=== PATIENT | male | born 1965 | race Two or more races ===

== ENCOUNTER 2021-06-14 18:15 | Inpatient (IN) | payer OTHER, MEDICAID ==
[~2021-06-14] VITALS: Ht 170.2 cm; Wt 71.9 kg
[2021-06-14] MEDS ORDERED: SODIUM CHLORIDE 0.9% 1,000 ML IV ONE (18:45)
[2021-06-14] MEDS ORDERED: INSULIN REGULAR (DRIP) 100 UNITS in SODIUM CHLORIDE 0.9% 100 ML IV ONE (18:45)
[2021-06-14 19:09] LABS: BG BASE EXCESS -11.1 mmol/L (-2.0-2.0); BG CARBOXYHEMOGLOBIN 1.2 % (0.5-1.5); BG DEOXYHEMOGLOBIN 4.4 % (0.0-5.0); BG FRACTION INSPIRED OXYGEN 24; BG METHEMOGLOBIN 0.4 % (0.0-1.5); BG OXYGEN SATURATION 95.5 % (92.0-98.5); BG PCO2 25.4 mmHg (35.0-45.0); BG PH 7.328 (7.350-7.450); BG PO2 82.9 mmHg (75.0-100.0); BG SAMPLE SITE RIGHT RADIAL; BG TOTAL HEMOGLOBIN 13.9 g/dL (12.0-18.0); BG VENT MODE NASAL CANNULA
[2021-06-14 19:18] LABS: HEMATOCRIT. 50.4 % (42.0-52.0); HEMOGLOBIN. 14.2 g/dL (14.0-18.0); MEAN CORPUSCULAR HEMOGLOBIN 30.5 pg (28.0-32.0); MEAN CORPUSCULAR VOLUME 108.2 fL (80.0-94.0); MEAN PLATELET VOLUME 9.7 fl (7.4-10.4); PLATELET 80 x1000/uL (130-400); RED BLOOD CELL COUNT 4.66 mill/uL (4.7-6.1); RED CELL DISTRIBUTION WIDTH 16.2 % (11.6-14.6)
[2021-06-14 19:48] LABS: PLATELET ESTIMATE DECREASED
[2021-06-14] MEDS ORDERED: ENOXAPARIN 80MG/0.8ML SYR SUBCUT NR (20:00)
[2021-06-14] MEDS ORDERED: ASPIRIN 325MG EC TABLET PO NR (20:00)
[2021-06-14] MEDS ORDERED: METOPROLOL TARTRATE 25MG TABLET PO NR (20:00)
[2021-06-14 20:21] LABS: BETA HYDROXYBUTYRATE 11.7 mMol/L (0.0-0.3)
[2021-06-14 23:18] LABS: PHOSPHORUS 4.4 mg/dL (2.5-4.9)
[2021-06-15] MEDS ORDERED: SODIUM CHLORIDE 0.9% 1,000 ML IV ONE
[2021-06-15] MEDS ORDERED: ONDANSETRON HCL 4MG/2ML INJ IV PRN (03:45)
[2021-06-15] MEDS ORDERED: DEXTROSE 50% WATER 50ML SYRINGE IV PRN ×3 (03:45→13:15)
[2021-06-15] MEDS ORDERED: ACETAMINOPHEN 325MG TABLET PO PRN (03:45)
[2021-06-15] MEDS ORDERED: DOCUSATE SODIUM 100MG CAPSULE PO PRN (03:45)
[2021-06-15] MEDS ORDERED: SODIUM CHLORIDE 0.9% 1,000 ML IV SCH (04:00)
[2021-06-15] MEDS: BLOOD SUGAR DIAGNOSTIC STRIP TEST SCH ×13 (04:18→21:39)
[2021-06-15] MEDS ORDERED: KCL 10MEQ/50ML PREMIX 50 ML IV NR (04:30)
[2021-06-15] MEDS ORDERED: INSULIN REGULAR (DRIP) 100 UNITS in SODIUM CHLORIDE 0.9% 100 ML IV SCH (07:00)
[2021-06-15] MEDS: ASPIRIN 81MG EC TABLET PO SCH (08:37)
[2021-06-15 12:12] LABS: CHLORIDE 114 mEq/L (98-107)
[2021-06-15 12:20] LABS: LDL CHOLESTEROL 64 mg/dL (5-100)
[2021-06-15 12:21] LABS: HDL CHOLESTEROL 25 mg/dL (40-59)
[2021-06-15] MEDS ORDERED: DEXTROSE 5% WATER 1,000 ML IV ONE (13:15)
[2021-06-15] MEDS ORDERED: INSULIN GLARGINE UD 100 UNITS/ML SYR SUBCUT SCH (13:15)
[2021-06-15] MEDS: INSULIN LISPRO 100 UNITS/ML SUBCUT SCH ×3 (13:17→21:52)
[2021-06-15] MEDS ORDERED: POTASSIUM CHLORIDE INJ 40 MEQ in DEXT 5% WATER 250 ML IV ONE (13:30)
[2021-06-15 14:28] VITALS: BP 133/84
[2021-06-15 15:59] LABS: CREATINE KINASE MB FRACTION 10.1 ng/mL (0.5-3.6)
[2021-06-15 16:00] VITALS: BP 133/84
[2021-06-15 20:00] VITALS: BP 138/72
[2021-06-15] MEDS: METOPROLOL TARTRATE 25MG TABLET PO SCH (22:05)
[2021-06-16] VITALS: BP 138/80
[2021-06-16 03:08] LABS: CREATINE KINASE MB FRACTION 6.8 ng/mL (0.5-3.6)
[2021-06-16] MEDS: BLOOD SUGAR DIAGNOSTIC STRIP TEST SCH ×4 (06:26→21:00)
[2021-06-16] MEDS: INSULIN LISPRO 100 UNITS/ML SUBCUT SCH ×4 (06:28→22:51)
[2021-06-16 09:41] LABS: CHLORIDE 112 mEq/L (98-107)
[2021-06-16 09:50] LABS: HEMATOCRIT. 39.9 % (42.0-52.0); HEMOGLOBIN. 13.4 g/dL (14.0-18.0); MEAN CORPUSCULAR HEMOGLOBIN 30.4 pg (28.0-32.0); MEAN CORPUSCULAR VOLUME 90.3 fL (80.0-94.0); RED BLOOD CELL COUNT 4.42 mill/uL (4.7-6.1); RED CELL DISTRIBUTION WIDTH 15.8 % (11.6-14.6)
[2021-06-16] MEDS ORDERED: INSULIN GLARGINE UD 100 UNITS/ML SYR SUBCUT SCH (10:00)
[2021-06-16] MEDS: ASPIRIN 81MG EC TABLET PO SCH (10:10)
[2021-06-16] MEDS: METOPROLOL TARTRATE 25MG TABLET PO SCH ×2 (10:10→22:41)
[2021-06-16 10:37] LABS: PLATELET 50 x1000/uL (130-400)
[2021-06-16] MEDS: DEXTROSE 5% WATER 1,000 ML IV SCH (12:15)
[2021-06-16] MEDS ORDERED: LORAZEPAM 0.5MG TABLET PO PRN (15:00)
[2021-06-16] MEDS ORDERED: LORAZEPAM 2MG/ML CPJ IV PRN (15:00)
[2021-06-16 16:59] LABS: PLATELET ESTIMATE MARKEDLY DECREASED
[2021-06-16] MEDS: LORAZEPAM 2MG/ML CPJ IV PRN (17:28)
[2021-06-16 21:18] VITALS: BP 124/74
[2021-06-17] VITALS (7 sets, daily range): BP systolic 97–132; BP diastolic 52–90
[2021-06-17] MEDS: DEXTROSE 5% WATER 1,000 ML IV SCH ×2 (01:26→15:08)
[2021-06-17] MEDS: LORAZEPAM 2MG/ML CPJ IV PRN ×2 (04:05→12:12)
[2021-06-17] MEDS: INSULIN LISPRO 100 UNITS/ML SUBCUT SCH ×4 (06:19→21:47)
[2021-06-17] MEDS: BLOOD SUGAR DIAGNOSTIC STRIP TEST SCH ×4 (06:19→21:36)
[2021-06-17] MEDS: METOPROLOL TARTRATE 25MG TABLET PO SCH ×2 (08:48→23:24)
[2021-06-17] MEDS ORDERED: INSULIN GLARGINE UD 100 UNITS/ML SYR SUBCUT SCH ×2 (10:00)
[2021-06-17] MEDS: CHLORDIAZEPOXIDE 5 MG CAPSULE PO SCH ×2 (15:07→22:44)
[2021-06-17 17:28] LABS: CHLORIDE 103 mEq/L (98-107)
[2021-06-17 17:33] LABS: BASOPHILS % 0.1 % (0.0-2.0); EOSINOPHILS % 1.1 % (0.0-5.0); HEMOGLOBIN. 12.8 g/dL (14.0-18.0); LYMPHOCYTES % 10.3 % (20.0-50.0); NEUTROPHILS % 79.5 % (40.0-76.0); RED BLOOD CELL COUNT 4.12 mill/uL (4.7-6.1); RED CELL DISTRIBUTION WIDTH 15.9 % (11.6-14.6)
[2021-06-17 17:37] LABS: CREATINE KINASE 177 IU/L (39-308)
[2021-06-17 17:41] LABS: PLATELET 49 x1000/uL (130-400)
[2021-06-18 04:00] VITALS: BP 106/65
[2021-06-18] MEDS: BLOOD SUGAR DIAGNOSTIC STRIP TEST SCH ×4 (06:34→21:37)
[2021-06-18] MEDS: CHLORDIAZEPOXIDE 5 MG CAPSULE PO SCH ×3 (06:34→21:08)
[2021-06-18] MEDS: DEXTROSE 5% WATER 1,000 ML IV SCH (06:34)
[2021-06-18] MEDS: INSULIN LISPRO 100 UNITS/ML SUBCUT SCH ×6 (06:57→21:37)
[2021-06-18] MEDS ORDERED: INSULIN LISPRO 100 UNITS/ML SUBCUT SCH (07:00)
[2021-06-18 08:00] VITALS: BP 103/62
[2021-06-18 08:04] LABS: CHLORIDE 100 mEq/L (98-107)
[2021-06-18 08:16] LABS: HEMATOCRIT. 36.9 % (42.0-52.0); HEMOGLOBIN. 12.6 g/dL (14.0-18.0); MEAN CORPUSCULAR HEMOGLOBIN 31.4 pg (28.0-32.0); MEAN CORPUSCULAR VOLUME 91.9 fL (80.0-94.0); MEAN PLATELET VOLUME 10.8 fl (7.4-10.4); PLATELET 57 x1000/uL (130-400); RED BLOOD CELL COUNT 4.01 mill/uL (4.7-6.1); RED CELL DISTRIBUTION WIDTH 15.5 % (11.6-14.6)
[2021-06-18] MEDS: METOPROLOL TARTRATE 25MG TABLET PO SCH ×2 (09:00→20:23)
[2021-06-18] MEDS ORDERED: POTASSIUM CHLORIDE 20MEQ TABLET SR PO NR (09:30)
[2021-06-18] MEDS ORDERED: INSULIN GLARGINE UD 100 UNITS/ML SYR SUBCUT SCH (10:00)
[2021-06-18 12:00] VITALS: BP 102/61
[2021-06-18] MEDS ORDERED: POTASSIUM CHLORIDE INJ 40 MEQ in DEXT 5% WATER 250 ML IV NR (12:00)
[2021-06-18 16:00] VITALS: BP 112/68
[2021-06-18] MEDS: LORAZEPAM 2MG/ML CPJ IV PRN ×2 (16:56→23:00)
[2021-06-18 20:00] VITALS: BP 102/65
[2021-06-18] MEDS: INSULIN GLARGINE UD 100 UNITS/ML SYR SUBCUT SCH (21:37)
[2021-06-18 22:09] LABS: PLATELET ESTIMATE DECREASED
[2021-06-19] VITALS: BP 121/80
[2021-06-19 04:00] VITALS: BP 133/79
[2021-06-19] MEDS: CHLORDIAZEPOXIDE 5 MG CAPSULE PO SCH (05:32)
[2021-06-19] MEDS: INSULIN LISPRO 100 UNITS/ML SUBCUT SCH ×7 (05:33→22:52)
[2021-06-19] MEDS: BLOOD SUGAR DIAGNOSTIC STRIP TEST SCH ×4 (05:34→21:00)
[2021-06-19 08:00] VITALS: BP 102/57
[2021-06-19] MEDS: METOPROLOL TARTRATE 25MG TABLET PO SCH ×2 (09:00→21:00)
[2021-06-19 09:41] LABS: HEMATOCRIT. 37.1 % (42.0-52.0); HEMOGLOBIN. 12.5 g/dL (14.0-18.0); MEAN CORPUSCULAR HEMOGLOBIN 30.7 pg (28.0-32.0); MEAN CORPUSCULAR VOLUME 91.3 fL (80.0-94.0); MEAN PLATELET VOLUME 11.1 fl (7.4-10.4); PLATELET 89 x1000/uL (130-400); RED BLOOD CELL COUNT 4.06 mill/uL (4.7-6.1); RED CELL DISTRIBUTION WIDTH 15.5 % (11.6-14.6)
[2021-06-19 09:49] LABS: CHLORIDE 105 mEq/L (98-107)
[2021-06-19] MEDS: INSULIN GLARGINE UD 100 UNITS/ML SYR SUBCUT SCH ×2 (09:57→22:53)
[2021-06-19 12:00] VITALS: BP 112/75
[2021-06-19] MEDS: POTASSIUM CHLORIDE 20MEQ TABLET SR PO SCH ×2 (12:47→17:43)
[2021-06-19 14:36] LABS: PLATELET ESTIMATE DECREASED
[2021-06-19 16:00] VITALS: BP 101/70
[2021-06-19 20:00] VITALS: BP 97/76
[2021-06-19] MEDS ORDERED: PANTOPRAZOLE 40MG DR TABLET PO NR (22:00)
[2021-06-19] MEDS: LORAZEPAM 2MG/ML CPJ IV PRN (22:09)
[2021-06-20] VITALS: BP 105/71
[2021-06-20 04:00] VITALS: BP 92/57
[2021-06-20] MEDS: INSULIN LISPRO 100 UNITS/ML SUBCUT SCH ×7 (06:40→22:25)
[2021-06-20] MEDS: BLOOD SUGAR DIAGNOSTIC STRIP TEST SCH ×4 (06:58→20:29)
[2021-06-20 08:00] VITALS: BP 99/57
[2021-06-20] MEDS: METOPROLOL TARTRATE 25MG TABLET PO SCH ×2 (09:00→22:09)
[2021-06-20] MEDS: POTASSIUM CHLORIDE 20MEQ TABLET SR PO SCH ×2 (10:58→17:00)
[2021-06-20 12:00] VITALS: BP 101/70
[2021-06-20] MEDS: INSULIN GLARGINE UD 100 UNITS/ML SYR SUBCUT SCH ×2 (13:28→22:11)
[2021-06-20] MEDS: LORAZEPAM 2MG/ML CPJ IV PRN ×2 (13:40→22:10)
[2021-06-20 16:00] VITALS: BP 99/66
[2021-06-20 20:00] VITALS: BP 94/56
[2021-06-21] VITALS: BP 98/57
[2021-06-21 04:00] VITALS: BP 113/75
[2021-06-21] MEDS: BLOOD SUGAR DIAGNOSTIC STRIP TEST SCH ×4 (06:34→21:35)
[2021-06-21] MEDS: INSULIN LISPRO 100 UNITS/ML SUBCUT SCH ×7 (06:42→21:47)
[2021-06-21 08:00] VITALS: BP 123/72
[2021-06-21] MEDS: METOPROLOL TARTRATE 25MG TABLET PO SCH ×3 (09:00→21:00)
[2021-06-21] MEDS: INSULIN GLARGINE UD 100 UNITS/ML SYR SUBCUT SCH ×2 (10:10→21:39)
[2021-06-21 12:00] VITALS: BP 117/80
[2021-06-21 12:32] LABS: HEMATOCRIT. 36.8 % (42.0-52.0); HEMOGLOBIN. 12.8 g/dL (14.0-18.0); MEAN CORPUSCULAR HEMOGLOBIN 31.4 pg (28.0-32.0); MEAN CORPUSCULAR VOLUME 90.7 fL (80.0-94.0); MEAN PLATELET VOLUME 9.7 fl (7.4-10.4); PLATELET 264 x1000/uL (130-400); RED BLOOD CELL COUNT 4.06 mill/uL (4.7-6.1); RED CELL DISTRIBUTION WIDTH 15.9 % (11.6-14.6)
[2021-06-21 12:41] LABS: CHLORIDE 110 mEq/L (98-107)
[2021-06-21 16:00] VITALS: BP 123/89
[2021-06-21 17:31] LABS: PLATELET ESTIMATE NORMAL
[2021-06-21 20:00] VITALS: BP 95/63
[2021-06-21] MEDS: ZOLPIDEM TARTRATE 5MG TABLET PO PRN (21:36)
[2021-06-22] VITALS: BP 102/77
[2021-06-22 04:00] VITALS: BP 127/82
[2021-06-22] MEDS: BLOOD SUGAR DIAGNOSTIC STRIP TEST SCH ×4 (06:02→21:00)
[2021-06-22] MEDS: INSULIN LISPRO 100 UNITS/ML SUBCUT SCH ×7 (06:07→22:47)
[2021-06-22 08:00] VITALS: BP 122/84
[2021-06-22] MEDS: METOPROLOL TARTRATE 25MG TABLET PO SCH (09:28)
[2021-06-22] MEDS: INSULIN GLARGINE UD 100 UNITS/ML SYR SUBCUT SCH ×2 (09:29→22:48)
[2021-06-22 12:00] VITALS: BP 127/85
[2021-06-22 16:00] VITALS: BP 117/73
[2021-06-22 20:00] VITALS: BP 135/85
[2021-06-22] MEDS: METOPROLOL TARTRATE 50MG TABLET PO SCH (22:40)
[2021-06-22] MEDS: ZOLPIDEM TARTRATE 5MG TABLET PO PRN (22:41)
[2021-06-23] VITALS: BP 112/71
[2021-06-23 04:00] VITALS: BP 105/63
[2021-06-23] MEDS: INSULIN LISPRO 100 UNITS/ML SUBCUT SCH ×4 (06:40→12:33)
[2021-06-23] MEDS: BLOOD SUGAR DIAGNOSTIC STRIP TEST SCH ×2 (07:13→12:25)
[2021-06-23 07:30] LABS: CHLORIDE 106 mEq/L (98-107)
[2021-06-23 07:53] LABS: HEMATOCRIT. 38.1 % (42.0-52.0); HEMOGLOBIN. 12.9 g/dL (14.0-18.0); MEAN CORPUSCULAR HEMOGLOBIN 31.5 pg (28.0-32.0); MEAN CORPUSCULAR VOLUME 93.4 fL (80.0-94.0); MEAN PLATELET VOLUME 9.3 fl (7.4-10.4); PLATELET 296 x1000/uL (130-400); RED BLOOD CELL COUNT 4.08 mill/uL (4.7-6.1); RED CELL DISTRIBUTION WIDTH 16.6 % (11.6-14.6)
[2021-06-23 08:00] VITALS: BP 116/77
[2021-06-23] MEDS ORDERED: ASPIRIN 81MG TABLET PO SCH (09:15)
[2021-06-23] MEDS: METOPROLOL TARTRATE 50MG TABLET PO SCH (09:52)
[2021-06-23] MEDS: INSULIN GLARGINE UD 100 UNITS/ML SYR SUBCUT SCH (09:54)
[2021-06-23 10:38] VITALS: BP 116/77
[2021-06-23 12:00] VITALS: BP 116/78
[2021-06-23 20:45] LABS: PLATELET ESTIMATE NORMAL
== END 2021-06-23 14:10 | disposition home or self-care (01) | DRG 280 ==
LOC: ER 18:15 → EDBD 18:15 → 7EST 21:49 → EDBEDREQSVC 06-15 13:14 → ENRESERV 06-15 13:43
PROVIDERS: ADMIT Hospitalist; ATTEND Hospitalist
DX: I21.4 Non-ST elevation (NSTEMI) myocardial infarction (principal); E11.10 Type 2 diabetes mellitus with ketoacidosis without coma; N17.9 Acute kidney failure, unspecified; E87.1 Hypo-osmolality and hyponatremia; M62.82 Rhabdomyolysis; E87.0 Hyperosmolality and hypernatremia; F10.139 Alcohol abuse with withdrawal, unspecified; D69.6 Thrombocytopenia, unspecified; Y90.9 Presence of alcohol in blood, level not specified; K74.60 Unspecified cirrhosis of liver; E11.40 Type 2 diabetes mellitus with diabetic neuropathy, unspecified; E87.5 Hyperkalemia; F10.129 Alcohol abuse with intoxication, unspecified; Z59.0 Homelessness
CPT/HCPCS: 36415; 36600; 71045; 80048; 80053; 80061; 82010; 82375; 82550; 82553; 82805; 82962; 83036; 83735; 83880; 84100; 84132; 84484; 85025; 93005; 93306; 97110; 97161; 99291; J1650; J1815; J2060; J2405; J3480; J7030; J7040; J7050; J7060; J7070